=== PATIENT | male | born 1950 | race Caucasian/White ===

== ENCOUNTER 2020-05-28 09:28 | Outpatient (CLI) | payer MEDICARE, OTHER, SELFPAY ==
--- NOTE | 2020-05-28 09:30 | CT_ITS ---
WS: [id number] CT ABDOMEN PELVIS TECHNIQUE: Contrast-enhanced CT of the abdomen and pelvis with coronal and sagittal reformatted image s. CLINICAL INFORMATION: ADOMINAL PAIN EPIGASTRIC, DIARRHEA BLOODY COMPARISON: March 02, 2016 DLP: 1058.[address] scans at [facility] use at least one of these dose optimization techniques: automat ed exposure control; mA and/or kV adjustment per patient size (includes targeted exams where dose is matched to clinical indication); or iterative reconstruction. FINDINGS: Liver is normal in appearance. Normal portal vein and splenic vein. Normal gallbladder. Slight hazy a telectasis in the lung bases. Small esophageal hiatal hernia. Small atrophic spleen. Adrenal glands a re normal. Normal renal parenchymal enhancement. No hydronephrosis. No obstructing renal or ureteral calculi. Small bilateral renal cysts larger on the left measuring 1.7 CM. Mild fatty atrophy of the p ancreas. 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 Nonobstructing right renal subcentimeter parenchymal calculi. Normal caliber abdominal aorta. Aortic calcification. No periaortic lymphadenopathy. Calcified enlarged prostate measuring 5.2 CM. Normal sigmoid colon. A few diverticuli. No evidence of acute diverticulitis. No evidence of high-grade small or large bowel obstruction. No pelvic or ingui nal lymphadenopathy. Lumbar scoliosis. CT/CT abdomen pelvis w con* [id number] IMPRESSION: 1. No new acute abdominal or pelvic findings. 2. A few diverticuli. No evidence of acute diverticulitis. 3. Enlarged prostate measuring 5.2 CM. Recommend correlation PSA. 4. No abdominal or pelvic lymphadenopathy. 5. No hydronephrosis in either kidney. 6. Small bilateral renal cysts. 7. Small esophageal hiatal hernia. 8. 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
[2020-05-28] MEDS: iohexol 300 mg/mL 50 mL Btl PO (10:06)
[2020-05-28] MEDS: iohexol 300 mg/mL 100 mL Btl IV (11:35)
== END 2020-05-28 09:29 | disposition home or self-care (01) ==
LOC: RADWPI 09:37
PROVIDERS: PCP Family Medicine; Visit Provider Family Medicine
DX: R10.13 Epigastric pain (principal); R19.7 Diarrhea, unspecified; K92.1 Melena; K57.90 Diverticulosis of intestine, part unspecified, without perforation or abscess without bleeding; N40.0 Benign prostatic hyperplasia without lower urinary tract symptoms; Q61.02 Congenital multiple renal cysts; K44.9 Diaphragmatic hernia without obstruction or gangrene; I72.8 Aneurysm of other specified arteries
CPT/HCPCS: 74177; Q9967

== ENCOUNTER → 2020-06-13 13:42 | Outpatient (BNVA) | payer MEDICARE, OTHER, SELFPAY | PROVIDERS: PCP Family Medicine; Visit Provider Surgery | DX: R19.4 Change in bowel habit (principal) | CPT/HCPCS: 87635 ==

== ENCOUNTER 2020-06-18 08:30 | Day surgery (SDC) | payer MEDICARE, OTHER, SELFPAY ==
[2020-06-16 12:28] VITALS: BMI 24.4
--- NOTE | 2020-06-18 09:04 | W.PM.OPSUD ---
Surgery/Procedure H&P Update DATE OF PROCEDURE: June 18, 2020 DATE H&P PERFORMED: 06/09/20 H&P UPDATE INFORMATION: I have reviewed H&P completed within last 30 days, I have examined patient prior to procedure and No changes to prior documentation PREOP DIAGNOSIS: Vomiting and change in bowel habits PRIMARY INDICATION FOR PROCEDURE: The same PLANNED PROCEDURE: Operation Date: 06/18/20 09:30 Proposed Procedures p EGD/Colon 03172 R11.10(Not Applicable) - Tee Acosta MD s Colonoscopy 97005 R19.4(Not Applicable) - Tee Acosta MD
[2020-06-18 09:10] VITALS: BP 147/79; PULSE 88; RESP 18; TEMP 36.5; O2SAT 97
[2020-06-18] MEDS: sodium chloride 0.9% 1,000 ML 30 ML IV (09:27)
--- NOTE | 2020-06-18 09:57 | ANES.PREANE2 ---
Pre-Anesthetic Assessment Pre-Anesthetic Assessment: Height/Weight: Height 1.83 m Weight 81.647 kg Temp Pulse Resp BP Pulse Ox 97.7 F 88 18 147/79 97 06/18/20 09:10 06/18/20 09:10 06/18/20 09:10 06/18/20 09:10 06/18/20 09:10 Preop Diagnosis: Vomiting and change in bowel habits Proposed Procedure: Operation Date: 06/18/20 09:30 Proposed Procedures p EGD/Colon 29839 R11.10(Not Applicable) - Tee Acosta MD s Colonoscopy 07592 R19.4(Not Applicable) - Tee Acosta MD Was Beta Ivania taken within 24 hours: N/A Last intake: Intake Last Liquid Date 06/17/20 Last Liquid Time 22:00 Last Solid Date 06/16/20 Last Solid Time 18:00 Social: Social History: Tobacco and No alcohol Exam: Pre-Anes Outpt Exam: alert, oriented x 3 and regular rate & rhythm Additional Exam Findings (including area of procedure): BBS decreased Airway: Submandibular: WNL Cervical ROM: WNL MP: 2 Dentition: False Pulmonary: Pulmonary: COPD GI: GI: GERD Anesthetic Plan: ASA status: 3 Anesthesia: MAC Risk of > 500 ml blood loss (7ml/kg in children): No Meds/Allergies Current Medications: Current Medications Generic Name Dose Route Start Last Admin Trade Name Freq PRN Reason Stop Dose Admin Sodium Chloride 1,000 mls @ 30 ml s/hr 06/18/20 09:00 06/18/20 09:27 Sodium Chloride 0.9% IV 06/19/20 08:59 30 mls/hr .Q24H TEVIN Administration PFSH Anesthesia PFSH: Social History Smoking and tobacco status: current every day smoker Alcohol intake: current Data Anesthesia Cardiac Studies: No Data to Display
[2020-06-18] MEDS: EPINEPHrine 1 mg/mL INJ XX (10:10)
[2020-06-18 10:35] VITALS: BP 107/72; PULSE 70; RESP 18; TEMP 36.3; O2SAT 97
[2020-06-18 10:46] VITALS: BP 119/79; PULSE 67; RESP 18; O2SAT 96
--- NOTE | 2020-06-18 10:54 | ANE.PACU2 ---
Inpatient post-anesthesia follow up: Airway intact: Yes Vital signs: Temperature 97.4 F Pulse Rate 67 Respiratory Rate 18 Blood Pressure 119/79 Pulse Oximetry 96 Oxygen Delivery Me thod Room Air Oxygen Flow Rate Fraction of Inspir ed Oxygen Hydration adequate: Yes Nausea and vomiting: No Pain level: 1 Mental status: Baseline
[2020-06-19 05:48] LABS: H. Pylori / CLO Test Negative
== END 2020-06-18 11:09 | disposition home or self-care (01) ==
PROVIDERS: PCP Family Medicine; Visit Provider Surgery
PROC: 0DJ08ZZ Inspection of Upper Intestinal Tract, Via Natural or Artificial Opening Endoscopic (ICD-10-PCS; CPT 43235; principal; 2020-06-18 09:30)
PROC: 0DJD8ZZ Inspection of Lower Intestinal Tract, Via Natural or Artificial Opening Endoscopic (ICD-10-PCS; CPT 45378; 2020-06-18 09:30)
DX: R19.4 Change in bowel habit (principal); R11.10 Vomiting, unspecified; D12.0 Benign neoplasm of cecum; D12.4 Benign neoplasm of descending colon; D12.5 Benign neoplasm of sigmoid colon; K21.00 Gastro-esophageal reflux disease with esophagitis, without bleeding; K29.70 Gastritis, unspecified, without bleeding; F17.210 Nicotine dependence, cigarettes, uncomplicated
CPT/HCPCS: 12345; 43236; 43239; 45380; 45385; 82274; 83630; 87046; 87077; 87177; 87209; 87493; 88305; J0171; J2704; J7030

== ENCOUNTER 2020-06-26 11:23 | Outpatient (CLI) | payer MEDICARE, OTHER, SELFPAY | END 2020-06-26 11:24 | disposition home or self-care (01) | PROVIDERS: PCP Family Medicine; Visit Provider Surgery | DX: K26.9 Duodenal ulcer, unspecified as acute or chronic, without hemorrhage or perforation (principal) | CPT/HCPCS: 36415; 82941 ==

== ENCOUNTER → 2024-02-20 13:59 | Outpatient (BNVA) | payer MEDICARE, OTHER, SELFPAY | PROVIDERS: PCP Family Medicine; Visit Provider Family Medicine | DX: N40.0 Benign prostatic hyperplasia without lower urinary tract symptoms (principal); Z00.00 Encounter for general adult medical examination without abnormal findings; Z13.220 Encounter for screening for lipoid disorders; Z51.81 Encounter for therapeutic drug level monitoring | CPT/HCPCS: 80053; 80061; 84153; 85025 ==

== ENCOUNTER → 2025-02-27 08:07 | Outpatient (BNVA) | payer MEDICARE, OTHER, SELFPAY | PROVIDERS: PCP Family Medicine; Visit Provider Family Medicine | DX: Z00.00 Encounter for general adult medical examination without abnormal findings (principal); N40.0 Benign prostatic hyperplasia without lower urinary tract symptoms; Z13.6 Encounter for screening for cardiovascular disorders; Z51.81 Encounter for therapeutic drug level monitoring; E55.9 Vitamin D deficiency, unspecified | CPT/HCPCS: 80053; 80061; 82306; 84153; 85025 ==